=== PATIENT | female | born 1935 | race Caucasian/White ===

== ENCOUNTER → 2017-08-06 | Outpatient (CLI) | payer MEDICARE, OTHER ==
[~2017-08-06] MED LIST: AMLO5TAB2 PO; ATOR40TA PO; CHOL10002 PO; DULO30CA2 PO; DULO60CA55 PO; GABA800T2 PO; IBUP-1223 PO; LABE200T3 PO; LISI-170 PO; MULT-516 PO; OXYC5TAB3 PO; PHEN-582 PO; ZOLP5TAB6 PO
[2017-08-06 10:53] LABS: HEMATOCRIT 37.9 % (34.6-47.8); HEMOGLOBIN 12.5 g/dL (11.7-16.4); WHITE BLOOD COUNT 5.8 x10^3/uL (3.4-10)
[2017-08-06 11:06] LABS: ASPARTATE AMINO TRANSFERASE 25 U/L (15-37); BLOOD UREA NITROGEN 24 mg/dL (7-18)
== END | disposition home or self-care (01) ==
LOC: STAR 09:46
PROVIDERS: ATTEND Obstetrics & Gynecology Female Pelvic Medicine and Reconstructive Surgery
DX: Z01.818 Encounter for other preprocedural examination (principal); M47.894 Other spondylosis, thoracic region; N81.6 Rectocele; N81.10 Cystocele, unspecified; N39.46 Mixed incontinence; Z86.79 Personal history of other diseases of the circulatory system; Z87.09 Personal history of other diseases of the respiratory system
CPT/HCPCS: 36415; 71020; 80053; 85025; 93005

== ENCOUNTER 2017-08-18 10:25 | Day surgery (SDC) | payer MEDICARE, OTHER ==
[~2017-08-18] VITALS: Ht 144.8 cm; Wt 51.8 kg
[~2017-08-18 10:25] MED LIST changes: +BUPIVACAINE/PF 0.25% ONE; +EPINEPHRINE 1 MG/ML, 1ML ONE; +FLUORESCEIN SODIUM 500 MG/5 ML ONE; +THROMBIN 5,000 UNIT VIAL TP ONE
[2017-08-18] MEDS ORDERED: LACTATED RINGERS 1,000 ML IV SCH ×2 (11:02→14:20)
[2017-08-18] MEDS ORDERED: LIDOCAINE 1%, 2ML ONE (11:08)
[2017-08-18] MEDS ORDERED: CEFAZOLIN 1,000 MG ONE (11:15)
[2017-08-18] MEDS ORDERED: SUCCINYLCHOLINE 20 MG/ML, 10ML ONE (11:15)
[2017-08-18] MEDS ORDERED: PROPOFOL 10 MG/ML, 20ML ONE (11:15)
[2017-08-18] MEDS ORDERED: FENTANYL PF 100 MCG/2ML ONE ×2 (11:15→14:43)
[2017-08-18] MEDS ORDERED: MIDAZOLAM 1 MG/ML, 2ML ONE (11:15)
[2017-08-18] MEDS ORDERED: ONDANSETRON 2MG/ML, 2ML ONE (11:15)
[2017-08-18] MEDS ORDERED: DEXAMETHASONE 4 MG/ML, 1ML ONE (11:15)
[2017-08-18] MEDS ORDERED: LIDOCAINE-MPF 2% ,5ML ONE (11:15)
[2017-08-18] MEDS ORDERED: LIDOCAINE 1%, 2ML SQ PRN (11:30)
[2017-08-18] MEDS ORDERED: ESTROGENS CONJUGATED VAG CRM 0.625MG/1G, 30GM ONE (12:57)
[2017-08-18] MEDS ORDERED: GENTAMICIN 80 MG/2 ML ONE (12:57)
[2017-08-18] MEDS ORDERED: VANCOMYCIN 500 MG ONE (12:58)
[2017-08-18] MEDS ORDERED: THROMBIN 5,000 UNIT VIAL TP ONE (12:58)
[2017-08-18] MEDS ORDERED: FLUORESCEIN SODIUM 500 MG/5 ML ONE (12:58)
[2017-08-18] MEDS ORDERED: LIDOCAINE GEL 2%, 5ML ONE (13:00)
[2017-08-18] MEDS ORDERED: HYDROmorphone 2 MG/ML, 1ML ONE ×2 (13:36→14:55)
[2017-08-18] MEDS ORDERED: BUPIVACAINE/PF-EPI 0.5% 1:200K IM ONE (13:45)
[2017-08-18] MEDS ORDERED: LORazepam 2 MG/ML, 1ML IVPush PRN (14:00)
[2017-08-18] MEDS ORDERED: MEPERIDINE/PF 25MG/0.5ML IVPush PRN (14:00)
[2017-08-18] MEDS ORDERED: ACETAMINOPHEN 325 MG TABLET PO PRN (14:00)
[2017-08-18] MEDS ORDERED: MIDAZOLAM 1 MG/ML, 2ML IV PRN (14:00)
[2017-08-18] MEDS ORDERED: PROMETHAZINE 25 MG/ML, 1ML IV PRN (14:00)
[2017-08-18] MEDS ORDERED: DIAZEPAM 5 MG/ML, 2ML IVPush PRN (14:00)
[2017-08-18] MEDS ORDERED: hydrALAzine 20 MG/ML, 1ML IV PRN (14:00)
[2017-08-18] MEDS ORDERED: ONDANSETRON 2MG/ML, 2ML IVPush PRN ×2 (14:00→14:30)
[2017-08-18] MEDS ORDERED: OXYcodone 5 MG/5 ML ORAL.SOL UDC PO PRN (14:00)
[2017-08-18] MEDS ORDERED: ALBUTEROL/IPRATROPIUM 2.5MG/0.5MG, 3 ML NPPB PRN (14:00)
[2017-08-18] MEDS ORDERED: LABETALOL 5MG/ML, 20ML IV PRN (14:00)
[2017-08-18] MEDS ORDERED: IBUPROFEN 600 MG TABLET PO PRN (14:30)
[2017-08-18] MEDS ORDERED: OXYcodone/APAP 5/325MG TABLET PO PRN (14:30)
[2017-08-18] MEDS ORDERED: PROMETHAZINE 12.5 MG SUPP PR ONE (14:30)
[2017-08-18] MEDS ORDERED: OXYcodone 5 MG/5 ML ORAL.SOL UDC ONE (14:38)
[2017-08-18] MEDS: FENTANYL PF 100 MCG/2ML IV PRN ×2 (14:46→14:51)
[2017-08-18] MEDS: HYDROmorphone 1 MG/ML, 1ML IV PRN ×2 (14:57→15:02)
== END 2017-08-18 18:05 ==
LOC: OUT 10:25
PROVIDERS: ATTEND Obstetrics & Gynecology Female Pelvic Medicine and Reconstructive Surgery
DX: N81.6 Rectocele (principal); E78.5 Hyperlipidemia, unspecified; I10 Essential (primary) hypertension; Z98.890 Other specified postprocedural states; Z90.49 Acquired absence of other specified parts of digestive tract; Z90.710 Acquired absence of both cervix and uterus; Z88.1 Allergy status to other antibiotic agents; Z87.39 Personal history of other diseases of the musculoskeletal system and connective tissue
CPT/HCPCS: 52000; 57250; J0171; J0330; J0690; J1100; J1170; J1580; J2250; J2405; J2704; J3010; J3360; J3370; J3490; J7120